=== PATIENT | female | born 1990 | race Caucasian/White ===

== ENCOUNTER 2021-01-15 06:40 | Observation (INO) | payer BC, OTHER ==
[2021-01-15] MEDS ORDERED: Sodium Chloride 0.9% 1000 ML 1,000 ML ONE (07:28)
[2021-01-15] MEDS ORDERED: Sodium Chloride 0.9% 1000 ML 1,000 ML IV STA (07:37)
[2021-01-15 07:43] LABS: Absolute Neutrophil Ct (ANC) 8.95 (1.4-6.9); BASOPHIL % 0.2 % (0.0-0.4); Basophil (Absolute #) 0.03 (0-0.4); Eosinophil (Absolute #) 0.54 (0-0.5); Hematocrit 41.3 % (35-47); Hemoglobin 13.4 gm/dl (12.0-16.0); Lymphocyte (Absolute #) 2.92 (1.0-4.6); Lymphocytes % 21.8 % (24.0-44.0); Mean Cell Volume 85.2 fl (78-100); Mean Corpuscular Hemoglobin 27.6 pg (26-32); Mean Corpuscular Hgb Concent. 32.4 g/dl (32-36); Mean Platelet Volume 10.4 fl (7.5-11.0); Monocyte (Absolute #) 0.97 (0.0-1.3); Monocytes % 7.2 % (0.0-12.0); Neutrophil % 66.8 % (36.0-66.0); Platelet Count 405 K/mm3 (150-450); Red Blood Count 4.85 M/mm3 (4.1-5.4); White Blood Count 13.4 K/mm3 (4.0-10.5)
[2021-01-15 07:51] LABS: ALBUMIN 4.7 g/dL (3.5-5.0); ALKALINE PHOSPHATASE 39 U/L (38-126); ANION GAP 15.8 MEQ/L (5-15); BLOOD UREA NITROGEN 14 mg/dL (7-17); CHLORIDE 99 mmol/L (98-107); Calcium 9.7 mg/dL (8.4-10.2); Carbon Dioxide 28 mmol/L (22-30); Creatinine 1 0.67 mg/dL (0.52-1.04); EST GLOMERULAR FILTRATION RATE > 60.0 ML/MIN; Glucose 80 mg/dL (74-106); Potassium 4.4 mmol/L (3.5-5.1); SGOT/AST 33 U/L (14-36); SGPT/ALT 28 U/L (0-35); SODIUM 139 mmol/L (137-145); Total Protein 8.2 g/dL (6.3-8.2)
[2021-01-15 08:20] LABS: Appearance CLEAR (CLEAR); Bilirubin NEGATIVE (NEGATIVE); Blood NEGATIVE Ery/ul (0-5); Glucose NEGATIVE (NEGATIVE); Ketones NEGATIVE (NEGATIVE); Leukocyte Esterase NEGATIVE (NEGATIVE); Mucus SLIGHT /HPF (NEGATIVE); Nitrite NEGATIVE (NEGATIVE); Protein,Urine Dip NEGATIVE (Negative); Specific Gravity 1.003 (1.005-1.025); Urobilinogen NEGATIVE mg/dL (0-1)
[2021-01-15 08:29] LABS: Amphetamine,Urine NEGATIVE (NEGATIVE); Barbiturate,Urine NEGATIVE (NEGATIVE); Benzodiazepine,Urine NEGATIVE (NEGATIVE); Cocaine,Urine NEGATIVE (NEGATIVE); Methadone,Urine NEGATIVE (NEGATIVE); Opiate,Urine POSITIVE (NEGATIVE); PCP,Urine NEGATIVE (NEGATIVE); THC,Urine NEGATIVE (NEGATIVE)
--- NOTE | 2021-01-15 08:38 | XRAY ---
Indication: Possible seizures since October 2020. Multiple contiguous axial images obtained through the head without contrast. Comparison: None Normal appearing brain parenchyma, ventricles, and bony calvarium. Impression: Normal CT head without contrast exam.
--- NOTE | 2021-01-15 08:38 | XRAY ---
Indication: Possible seizure since October 2020. Comparison: None Portable chest demonstrates normal heart, lungs, and bony thorax with incidental bilateral nipple jewelry.
[2021-01-15] MEDS ORDERED: Keppra 500 MG/5 ML*** 1,500 MG in D5w 100ML Mini Bag 100 ML 100 ML IV ONE (10:26)
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
[2021-01-15] MEDS ORDERED: TYLENOL 325 MG PO PRN (13:05)
[2021-01-15] MEDS ORDERED: DUONEB 0.5-3 MG/3 ml Neb IH PRN (13:05)
[2021-01-15] MEDS: PROTONIX 40 MG IV IV SCH (16:19)
[2021-01-15] MEDS: Effexor XR 75 MG PO SCH (16:19)
[2021-01-15] MEDS: Neurontin 100 MG PO SCH ×2 (16:19→21:26)
[2021-01-15] MEDS: NORCO 7.5/325 MG TAB PO PRN ×2 (16:59→21:26)
[2021-01-15] MEDS: Sodium Chloride 0.9% 1000 ML 1,000 ML IV SCH (21:27)
[2021-01-16] MEDS: NORCO 7.5/325 MG TAB PO PRN ×3 (02:54→15:24)
[2021-01-16 05:06] LABS: Absolute Neutrophil Ct (ANC) 3.33 (1.4-6.9); BASOPHIL % 0.3 % (0.0-0.4); Basophil (Absolute #) 0.02 (0-0.4); Eosinophil (Absolute #) 0.46 (0-0.5); Hematocrit 34.8 % (35-47); Hemoglobin 10.8 gm/dl (12.0-16.0); Lymphocyte (Absolute #) 3.27 (1.0-4.6); Lymphocytes % 42.4 % (24.0-44.0); Mean Cell Volume 89.2 fl (78-100); Mean Corpuscular Hemoglobin 27.7 pg (26-32); Mean Platelet Volume 10.3 fl (7.5-11.0); Monocyte (Absolute #) 0.63 (0.0-1.3); Monocytes % 8.2 % (0.0-12.0); Neutrophil % 43.1 % (36.0-66.0); Platelet Count 314 K/mm3 (150-450); Red Cell Distribution Width 15.4 % (11.5-14.0); White Blood Count 7.7 K/mm3 (4.0-10.5)
[2021-01-16] MEDS: Sodium Chloride 0.9% 1000 ML 1,000 ML IV SCH ×2 (05:45→08:54)
[2021-01-16 05:49] LABS: ALBUMIN 3.2 g/dL (3.5-5.0); ALKALINE PHOSPHATASE 36 U/L (38-126); ANION GAP 11.3 MEQ/L (5-15); BILIRUBIN,TOTAL < 0.10 mg/dL (0.2-1.3); BLOOD UREA NITROGEN 7 mg/dL (7-17); CHLORIDE 106 mmol/L (98-107); Calcium 8.3 mg/dL (8.4-10.2); Carbon Dioxide 25 mmol/L (22-30); Creatinine 1 0.63 mg/dL (0.52-1.04); EST GLOMERULAR FILTRATION RATE > 60.0 ML/MIN; Glucose 110 mg/dL (74-106); Potassium 3.9 mmol/L (3.5-5.1); SGOT/AST 20 U/L (14-36); SGPT/ALT 19 U/L (0-35); SODIUM 139 mmol/L (137-145); Total Protein 5.9 g/dL (6.3-8.2)
[2021-01-16 07:58] VITALS: O2SAT 97
[2021-01-16] MEDS: Neurontin 100 MG PO SCH ×2 (08:49→14:13)
[2021-01-16] MEDS: Effexor XR 75 MG PO SCH (08:49)
[2021-01-16] MEDS: PROTONIX 40 MG IV IV SCH (08:50)
--- NOTE | 2021-01-16 11:08 | XRAY ---
Exam: MRI of the brain without and with IV contrast from 01/16/2021. Comparison: CT of the head without IV contrast from 01/15/2021. Indication: 30-year-old female with new onset of seizures. Technique: Routine pre-IV contrast and post IV contrast MRI imaging sequences were obtained through the brain, per protocol. 15 ML's of IV Dotarem was used for the post IV contrast study. The ventricles appear of normal size. No focal mass effect or midline shift is seen. There is no evidence of acute intracranial bleed or abnormal extra-axial fluid collection. There is a small nonspecific focus of increased signal intensity within the posterior left parietal-temporal region on axial image #13 on the T2-weighted images and axial image #13 of the T2-weighted FLAIR images. This could represent a small focus of demyelination, gliosis, or focal insult/injury. The diffusion weighted images reveal no foci of restricted diffusion to suggest acute or subacute infarct. The seventh and eighth cranial nerve root complexes appear unremarkable. Flow-voids about the [place] appear grossly unremarkable. No significant abnormality of the paranasal sinuses is seen. There is slight deviation of nasal septum toward the right. The mastoids appear unremarkable. The orbits appear grossly unremarkable. No other abnormal increased or decreased brain signal intensities are seen. The postcontrast images reveal no sites of abnormal enhancement. Impression: 1. The only finding of note is a small focus of hyperintensity within the posterior left parietal-temporal region measuring about 7.3 mm in maximum diameter. This is seen on the T2-weighted and T T2-weighted FLAIR axial images. See above discussion. 2. The remainder of the MRI of the brain without and with IV contrast appears unremarkable.
[2021-01-16] MEDS ORDERED: KEPPRA 500 MG PO SCH (12:00)
[2021-01-16 12:55] VITALS: BP 114/67; PULSE 66
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
== END 2021-01-16 15:45 | disposition home or self-care (01) ==
LOC: ED 06:40 → MED SURG 12:58
PROVIDERS: ADMIT Family Medicine; ATTEND Family Medicine
DX: R56.9 Unspecified convulsions (principal); Z79.899 Other long term (current) drug therapy; Z20.828 Contact with and (suspected) exposure to other viral communicable diseases
CPT/HCPCS: 36000; 36415; 70450; 70553; 71045; 80053; 80307; 81001; 82550; 83605; 84443; 85025; 93005; 93268; 95812; 96360; 96374; 99285; G0378; Q3014; U0003; 96375; J1953; A9270-GY

== ENCOUNTER 2022-05-12 10:53 | Emergency (ER) | payer OTHER ==
[2022-05-12] MEDS ORDERED: DUONEB 0.5-3 MG/3 ml Neb IH ONE ×2 (11:07→11:24)
[2022-05-12] MEDS ORDERED: DELTASONE 20 MG PO ONE (11:07)
--- NOTE | 2022-05-12 11:30 | XRAY ---
Indication: Cough and short of breath. Comparison: January 15, 2021 Portable chest again demonstrates normal heart, lungs, and bony thorax with incidental bilateral nipple jewelry.
[2022-05-12] MEDS ORDERED: DELTASONE 20 MG ONE (11:36)
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
[2022-05-12 12:04] LABS: INFLUENZA B NEGATIVE (NEGATIVE); RESPIRATORY SYNCTIAL VIRUS NEGATIVE (Negative); SARS-CoV-2 Xpert Express NEGATIVE (NEGATIVE)
[2022-05-12 12:10] LABS: INFLUENZA A POSITIVE (NEGATIVE)
[2022-05-12 12:15] VITALS: BP 103/86; PULSE 81
[2022-05-12 12:18] VITALS: O2SAT 96
== END 2022-05-12 12:29 | disposition home or self-care (01) ==
LOC: ED 10:53
DX: J10.1 Influenza due to other identified influenza virus with other respiratory manifestations (principal); J40 Bronchitis, not specified as acute or chronic; R05.1 Acute cough; R06.02 Shortness of breath; R50.9 Fever, unspecified; Z72.0 Tobacco use; Z79.52 Long term (current) use of systemic steroids; Z79.899 Other long term (current) drug therapy; Z28.310 Unvaccinated for COVID-19
CPT/HCPCS: 0241U; 71045; 94640; 99283; A9270-GY